=== PATIENT | male | born 1975 | race Caucasian/White ===

== ENCOUNTER → 2016-11-02 | Outpatient (CLI) | payer OTHER ==
[~2016-11-02] VITALS: Ht 170.2 cm; Wt 112.9 kg
[2016-11-02 14:37] VITALS: BP 114/80
== END | disposition home or self-care (01) ==
LOC: HBOWC 14:11
PROVIDERS: ATTEND Emergency Medicine
DX: S01.81XA Laceration without foreign body of other part of head, initial encounter (principal); W45.8XXA Other foreign body or object entering through skin, initial encounter; Y93.9 Activity, unspecified; Y92.9 Unspecified place or not applicable; Y99.9 Unspecified external cause status